=== PATIENT | female | born 1960 | race Caucasian/White ===

== ENCOUNTER 2016-12-09 14:33 | Emergency (ER) | payer BC, OTHER ==
[~2016-12-09] VITALS: Ht 167.6 cm; Wt 76.0 kg
[~2016-12-09 14:33] MED LIST: GLCPUNK; HMLI7525 SC; LANTUS; NRNUNK; SYNUNK; ZCRUNK; ZNTUNK
[2016-12-09 14:34] VITALS: TEMP 36.8; Ht 167.6 cm; Wt 76.0 kg
--- NOTE | 2016-12-09 15:01 | EMERGENCY ROOM VISIT NOTE ---
History Report prepared by Earnest: Carine Dejesus Under the Supervision of: Dr. Varsha Mcdowell M.D. First contact with patient: 14:38 Chief Complaint: BELLS PALSY SYMPTOMS Stated Complaint: FACIAL NUMBNESS AND PAIN Nursing Triage Summary: right side faical droop. started on placed on steroids at acute care. symptoms seem to be getting worse. now having pain in right side of face History of Present Illness The patient is a 56 year old female who presents to the Emergency Room with complaints of worsening Pompey Palsy symptoms beginning 5 days prior to arrival. The patient states that she began to experience a right facial droop and numbness that she noticed with smiling. This has since progressed to be a constant facial droop. She is experiencing pain and a heat sensation to the right side of her face and ear. The patient also notes tingling and lack of taste to her tongue. She did go to Acute Care 4 days ago and was diagnosed with Pompey Palsy and the patient was put on Prednisone. 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 The patient denies dental issues, trouble swallowing or slurred speech. Source of History: patient Onset: 5 days [employer] Position: other (global) Quality: other (Pompey Palsy symptoms) Timing: worsening Note: She is experiencing right facial droop, facial numbness, and heat sensation to right side of face. The patient denies dental issues, trouble swallowing or slurred speech. Review of Systems See HPI for pertinent positives & negatives. A total of 10 systems reviewed and were otherwise negative. Past Medical & Surgical Surgical Problems: (1) H/O gastric bypass (2) S/P appendectomy (3) S/P cholecystectomy Family History Cancer Diabetes mellitus Gallbladder disease Heart disease Hypertension Lung disease Social History Smoking Status: Never Smoker Smokeless Tobacco Use: No Alcohol Use: none Drug Use: none Marital Status: Housing Status: lives with family Occupation Status: employed Current/Historical Medications Scheduled Calcium Citrate (Calcium Citrate), Unknown Dose PO DAILY Levothyroxine Sodium (Levothyroxine Sodium), 1 TAB PO DAILY Metformin Hcl (Glucophage), 850 MG PO BIDM Multivitamins/Minerals (Mvi With Minerals), 1 TAB PO DAILY Prednisone (Prednisone), 20 MG PO TAPER UD Prednisone (Prednisone), 60 MG PO DAILY Valacyclovir (Valtrex), 1,000 MG PO TID Scheduled PRN Acetaminophen (Tylenol), 650 MG PO Q6 PRN for Pain Allergies Uncoded Allergies: AMOXIL (Allergy, Unknown, HIVES, 01/24/05) CECLOR (Allergy, Unknown, HIVES, 01/24/05) Physical Exam Vital Signs Date Time Temp Pulse Resp B/P Pulse Ox O2 Delivery O2 Flow Rate FiO2 12/09/16 16:30 67 18 144/72 98 Room Air 12/09/16 15:10 70 12/09/16 14:34 36.8 76 18 156/91 99 Room Air Physical Exam Vital signs reviewed. General: Well-appearing female, in no significant distress. HEENT: No scleral icterus, PERRLA, neck supple. Atraumatic. Cardiovascular: Regular rate and rhythm, no extra sounds. Pulmonary: Clear to auscultation bilaterally, normal work of breathing. Abdomen: Soft, nontender, nondistended, positive bowel sounds. Musculoskeletal: Atraumatic, no peripheral edema. Neurologic: Patient awake alert and oriented x 3, full strength in all 4 extremities. Cranial nerves 2 through 12 grossly intact. Right facial droop, minimal forehead involvement, no tongue deviation, unable to fully close right eye. Skin: Warm, dry, no rash Medical Decision & Procedures ER Provider Diagnostic Interpretation: CT results as stated below per my review and radiologist interpretation: HEAD CT NONCONTRAST CT DOSE: 537.48 mGy.cm HISTORY: Mental status change R facial droop since (4 days) TECHNIQUE: Multiaxial CT images of the head were performed without the use of intravenous contrast. Comparison: None. Findings: The paranasal sinuses and mastoid air cells are clear. The calvarium and skull base are intact. The ventricles and sulci are within normal limits. There is no mass, hematoma, midline shift, or acute infarct. Impression: No acute intracranial abnormality. Electronically signed by: Fabian Barnard M.D. 12/09/2016 3:29 PM Dictated Date/Time: 12/09/2016 3:28 PM Laboratory Results 12/09/16 15:05 Red Blood Count 4.46, Mean Corpuscular Volume 89.5, Mean Corpuscular Hemoglobin 30.3, Mean Corpuscular Hemoglobin Concent 33.8, Mean Platelet Volume 9.6, Neutrophils (%) (Auto) 81.7, Lymphocytes (%) (Auto) 13.7, Monocytes (%) (Auto) 4.1, Eosinophils (%) (Auto) 0.0, Basophils (%) (Auto) 0.1, Neutrophils # (Auto) 6.65, Lymphocytes # (Auto) 1.11, Monocytes # (Auto) 0.33, Eosinophils # (Auto) 0.00, Basophils # (Auto) 0.01 12/09/16 15:05 Test 12/09/16 15:05 White Blood Count 8.13 K/uL (4.8-10.8) Red Blood Count 4.46 M/uL (4.2-5.4) Hemoglobin 13.5 g/dL (12.0-16.0) Hematocrit 39.9 % (37-47) Mean Corpuscular Volume 89.5 fL (80-100) Mean Corpuscular Hemoglobin 30.3 pg (25-34) Mean Corpuscular Hemoglobin Concent 33.8 g/dl (32-36) Platelet Count 324 K/uL (130-400) Mean Platelet Volume 9.6 fL (7.4-10.4) Neutrophils (%) (Auto) 81.7 % Lymphocytes (%) (Auto) 13.7 % Monocytes (%) (Auto) 4.1 % Eosinophils (%) (Auto) 0.0 % Basophils (%) (Auto) 0.1 % Neutrophils # (Auto) 6.65 K/uL (1.4-6.5) Lymphocytes # (Auto) 1.11 K/uL (1.2-3.4) Monocytes # (Auto) 0.33 K/uL (0.11-0.59) Eosinophils # (Auto) 0.00 K/uL (0-0.5) Basophils # (Auto) 0.01 K/uL (0-0.2) RDW Standard Deviation 38.9 fL (36.4-46.3) RDW Coefficient of Variation 12.0 % (11.5-14.5) Immature Granulocyte % (Auto) 0.4 % Immature Granulocyte # (Auto) 0.03 K/uL (0.00-0.02) Anion Gap 5.0 mmol/L (3-11) Est Creatinine Clear Calc Drug Dose 97.6 ml/min Estimated GFR () 113.9 Estimated GFR (Non- 98.3 BUN/Creatinine Ratio 26.7 (10-20) Calcium Level 9.2 mg/dl (8.5-10.1) Total Bilirubin 0.5 mg/dl (0.2-1) Direct Bilirubin 0.2 mg/dl (0-0.2) Aspartate Amino Transf (AST/SGOT) 7 U/L (15-37) Alanine Aminotransferase (ALT/SGPT) 25 U/L (12-78) Alkaline Phosphatase 71 U/L (45-117) Total Protein 7.5 gm/dl (6.4-8.2) Albumin 4.1 gm/dl (3.4-5.0) Lyme Disease IgG Antibody NEG (NEG) Lyme Disease IgM Antibody NEG (NEG) Laboratory results per my review. ECG Indication: other (Pompey Palsy symptoms ) Rate (beats per minute): 67 Rhythm: normal sinus Findings: T-wave inversion (Inferior), no acute ischemic change, no ectopy ED Course 1448: Past medical records reviewed. The patient was evaluated in room B2. A complete history and physical examination was performed. 1631: Upon reevaluation, the patient appeared to have improvement of her symptoms. I discussed findings with her. She verbalized agreement of the treatment plan. She was discharged home. Medical Decision The patient is a 56 year old female who presents to the ED with complaints of Pompey Palsy symptoms. Differentials include metabolic, infection, hypo/ hyperglycemia, electrolyte abnormalities, cardiac sources, intracerebral event, toxicologic, neurologic, Pompey Palsy as well as others were entertained. This patient was evaluated and appeared to be in no significant distress. IV access was obtained and laboratory work was drawn. The patient's physical examination is consistent with a Talamantes's palsy however she is complaining of some neuralgia. CT scan of the head was performed and is negative. The patient has been on prednisone for the last several days. She will be placed on Valtrex 1000 mg 3 times a day for 7 days and encouraged to continue prednisone 60 mg daily for a total of 7 days. The patient was encouraged to follow-up with her primary care physician this week for reevaluation and return to the ER for worsening of symptoms or any medical concerns. Impression Primary Impression: Talamantes's palsy Scribe Attestation The scribe's documentation has been prepared under my direction and personally reviewed by me in its entirety. I confirm that the note above accurately reflects all work, treatment, procedures, and medical decision making performed by me. Departure Information Dispostion Home / Self-Care Prescriptions Prednisone (Prednisone) 20 Mg Tab 60 MG PO DAILY for 7 Days, #21 TAB Prov: Varsha Mcdowell M.D. 12/09/16 Valacyclovir (Valtrex) 500 Mg Tab 1000 MG PO TID for 7 Days, #42 TAB Prov: Varsha Mcdowell M.D. 12/09/16 Referrals Manjula Briscoe M.D. (PCP) Forms HOME CARE DOCUMENTATION FORM, IMPORTANT VISIT INFORMATION Patient Instructions ED Pompey Palsy, My [facility] Additional Instructions Diagnosis: Talamantes's palsy Valtrex 1000 mg 3 times a day for 7 days. Prednisone 60 mg daily for 7 days total. Tylenol 650 mg every 6 hours as needed for pain. Follow-up with your physician this week for reevaluation. Return to the ER for worsening of symptoms or any medical concerns.
[2016-12-09 15:16] LABS: BASO % 0.1 %; BASO ABS # 0.01 K/uL (0-0.2); COMPLETE YES; HEMATOCRIT 39.9 % (37-47); IG% 0.4 %; LYMPH % 13.7 %; LYMPH ABS # 1.11 K/uL (1.2-3.4); MEAN CELL VOLUME 89.5 fL (80-100); MEAN CORPUSCULAR HEMOGLOBIN 30.3 pg (25-34); MEAN CORPUSCULAR HGB CONC 33.8 g/dl (32-36); MEAN PLATELET VOLUME 9.6 fL (7.4-10.4); MONO % 4.1 %; NEUT % 81.7 %; PLATELET COUNT 324 K/uL (130-400); RED BLOOD COUNT 4.46 M/uL (4.2-5.4); WHITE BLOOD COUNT 8.13 K/uL (4.8-10.8)
[2016-12-09] MEDS ORDERED: METF-383 PO (15:18)
[2016-12-09] MEDS ORDERED: ACET-1311 PO (15:18)
[2016-12-09] MEDS ORDERED: CALC250T8 PO (15:18)
[2016-12-09] MEDS ORDERED: MULT-513 PO (15:18)
[2016-12-09] MEDS ORDERED: PRED20TA PO ×2 (15:18→16:30)
[2016-12-09] MEDS ORDERED: LEVO150T9 PO (15:18)
--- NOTE | 2016-12-09 15:31 | DIAGNOSTIC IMAGING REPORT ---
HEAD CT NONCONTRAST CT DOSE: 537.48 mGy.cm HISTORY: Mental status change R facial droop since (4 days) TECHNIQUE: Multiaxial CT images of the head were performed without the use of intravenous contrast. Comparison: None. Findings: The paranasal sinuses and mastoid air cells are clear. The calvarium and skull base are intact. The ventricles and sulci are within normal limits. There is no mass, hematoma, midline shift, or acute infarct. Impression: No acute intracranial abnormality. Electronically signed by: Fabian Barnard M.D. 12/09/2016 3:29 PM Dictated Date/Time: 12/09/2016 3:28 PM
[2016-12-09 15:34] LABS: BUN/CREATININE RATIO 26.7 (10-20); CALCIUM 9.2 mg/dl (8.5-10.1); CREATININE 0.67 mg/dl (0.60-1.20)
[2016-12-09 16:15] LABS: LYME DISEASE AB IGG NEG (NEG); LYME DISEASE AB IGM NEG (NEG)
[2016-12-09 16:30] VITALS: BP 144/72; PULSE 67; O2SAT 98
[2016-12-09] MEDS ORDERED: VALA500T60 PO (16:30)
== END 2016-12-09 16:57 | disposition home or self-care (01) ==
LOC: C.EDB 14:34
DX: G51.0 Bell's palsy (principal); Z98.84 Bariatric surgery status; Z90.49 Acquired absence of other specified parts of digestive tract; Z98.890 Other specified postprocedural states; Z79.899 Other long term (current) drug therapy; Z88.1 Allergy status to other antibiotic agents; Z80.9 Family history of malignant neoplasm, unspecified; Z88.8 Allergy status to other drugs, medicaments and biological substances; Z83.3 Family history of diabetes mellitus; Z83.79 Family history of other diseases of the digestive system; Z82.49 Family history of ischemic heart disease and other diseases of the circulatory system